=== PATIENT | female | born 1935 | race Caucasian/White ===

== ENCOUNTER 2018-07-14 09:49 | Emergency (ER) | payer OTHER ==
[~2018-07-14] VITALS: Ht 152.4 cm; Wt 67.6 kg
[~2018-07-14 09:49] MED LIST: ASPIRIN EC81 M1 PO; HYDROCERIN CREA1 JAR TOP; LAXATIVE15 MG; MULTIVITAMINS1 EAC7 PO; NORVASC 5 MG TAB5 MG PO; PROZAC 10 MG CA10 MG PO; QUINU10 PD PO; RANEXA500 MG PO
[2018-07-14] MEDS ORDERED: PRAVACHOL20 MG PO (09:55)
[2018-07-14 10:57] VITALS: BP 162/78
== END 2018-07-14 10:59 | disposition home or self-care (01) ==
LOC: M.ERS 09:49
DX: S01.02XA Laceration with foreign body of scalp, initial encounter (principal); Z85.828 Personal history of other malignant neoplasm of skin; Z85.41 Personal history of malignant neoplasm of cervix uteri; Z90.711 Acquired absence of uterus with remaining cervical stump; Z88.5 Allergy status to narcotic agent; Z88.0 Allergy status to penicillin; Z88.2 Allergy status to sulfonamides; W06.XXXA Fall from bed, initial encounter; Y93.89 Activity, other specified; Y92.89 Other specified places as the place of occurrence of the external cause; Y99.8 Other external cause status

== ENCOUNTER 2018-10-29 12:01 | Emergency (ER) | payer OTHER ==
[~2018-10-29] VITALS: Ht 152.4 cm; Wt 67.6 kg
[~2018-10-29 12:01] MED LIST changes: +PRAVACHOL20 MG PO
[2018-10-29 12:26] LABS: ABSOLUTE BASOPHILS 0.1 thou/uL (0.0-0.2); ABSOLUTE EOSINOPHILS 0.2 thou/uL (0.0-0.7); ABSOLUTE LYMPHOCYTES 1.3 thou/uL (0.8-5.3); ABSOLUTE MONOCYTES 0.5 thou/uL (0.0-1.2); ABSOLUTE NEUTROPHILS 5.7 thou/uL (1.6-8.1); BASOPHILS 0.8 %; EOSINOPHILS 2.3 %; HEMATOCRIT 37.5 % (37.0-47.0); HEMOGLOBIN 12.6 gm/dL (12.0-15.0); LYMPHOCYTES 16.4 %; MCH 30.2 pg (26.0-34.0); MCHC 33.7 g/dL (28.0-37.0); MCV 89.5 fL (80.0-100.0); MONOCYTES 6.5 %; NUCLEATED RBCS 0 /100WBC; PLATELET COUNT* 230 thou/uL (150-400); RBC 4.18 mil/uL (4.20-5.00); RDW-CV 13.9 % (10.5-14.5); WBC 7.7 thou/uL (4.0-11.0)
[2018-10-29 12:30] LABS: CALCIUM 9.1 mg/dL (8.5-10.1); CREATININE 0.6 mg/dL (0.6-1.3); POTASSIUM 4.4 mmol/L (3.5-5.1)
[2018-10-29 12:34] LABS: APTT 26.6 Seconds (25.0-31.3); PROTIME 10.2 Seconds (9.20-11.50)
[2018-10-29 12:41] LABS: ALBUMIN 3.8 g/dL (3.4-5.0); TOTAL BILIRUBIN 0.3 mg/dL (<0.1-1.0)
[2018-10-29 13:50] VITALS: BP 164/62
--- NOTE | 2018-10-29 16:27 | EKG ---
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 10/29/18 1627 1236 1236 Kvng Hood MD, [facility] /EPI
== END 2018-10-29 13:50 | disposition home or self-care (01) ==
LOC: M.ERS 12:01
PROVIDERS: Family Medicine
DX: K59.00 Constipation, unspecified (principal); Z88.5 Allergy status to narcotic agent; Z88.0 Allergy status to penicillin; Z88.2 Allergy status to sulfonamides; Z90.711 Acquired absence of uterus with remaining cervical stump; Z85.41 Personal history of malignant neoplasm of cervix uteri; Z85.828 Personal history of other malignant neoplasm of skin

== ENCOUNTER 2019-04-23 13:13 | Inpatient (IN) | payer OTHER ==
[~2019-04-23] VITALS: Ht 152.4 cm; Wt 73.5 kg
[2019-04-23 13:18] VITALS: BP 193/71
[2019-04-23 14:10] LABS: ABSOLUTE BASOPHILS 0.1 thou/uL (0.0-0.2); ABSOLUTE EOSINOPHILS 0.2 thou/uL (0.0-0.7); ABSOLUTE LYMPHOCYTES 1.1 thou/uL (0.8-5.3); ABSOLUTE MONOCYTES 0.7 thou/uL (0.0-1.2); ABSOLUTE NEUTROPHILS 11.1 thou/uL (1.6-8.1); BASOPHILS 0.5 %; EOSINOPHILS 1.6 %; HEMATOCRIT 38.1 % (37.0-47.0); HEMOGLOBIN 12.8 gm/dL (12.0-15.0); LYMPHOCYTES 8.4 %; MCH 30.4 pg (26.0-34.0); MCHC 33.7 g/dL (28.0-37.0); MCV 90.4 fL (80.0-100.0); MPV 7.8 fl. (7.2-11.1); NUCLEATED RBCS 0 /100WBC; PLATELET COUNT* 221 thou/uL (150-400); POLYS 84.5 %; RBC 4.21 mil/uL (4.20-5.00); RDW-CV 13.6 % (10.5-14.5); WBC 13.1 thou/uL (4.0-11.0)
--- NOTE | 2019-04-23 14:20 | EKG ---
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1935 Requested By: Clemente Hudson Order Number: [id number] MD: Michael Garcia Measurements Intervals [place] Rate: 87 P: 47 DE: 185 QRS: 20 QRSD: 87 T: 66 QT: 380 QTc: 457 Interpretive Statements Sinus rhythm Baseline wander in lead(s) I,III,aVL,aVF Compared to ECG 10/29/2018 12:36:45 Left ventricular hypertrophy no longer present Electronically Signed On 04-23-2019 14:19:52 [employer] SUPERVISOR by Michael Garcia [email or web address] <ELECTRONICALLY SIGNED> By: Michael Garcia MD, [facility] 04/23/19 1419 1333 1333 Michael Garcia MD, [facility] /EPI
[2019-04-23 14:22] LABS: CALCIUM 9.5 mg/dL (8.5-10.1); CREATININE 0.6 mg/dL (0.6-1.3); POTASSIUM 3.9 mmol/L (3.5-5.1)
[2019-04-23 14:26] LABS: TOTAL BILIRUBIN 0.4 mg/dL (<0.1-1.0); TOTAL PROTEIN 7.3 g/dL (6.4-8.2)
[2019-04-23 14:42] LABS: APTT 24.2 Seconds (25.0-31.3); PROTIME 10.5 Seconds (9.20-11.50)
[2019-04-23 16:29] LABS: URINE BILIRUBIN NEGATIVE (Negative); URINE BLOOD NEGATIVE (Negative); URINE CLARITY CLEAR; URINE COLOR YELLOW; URINE GLUCOSE-RANDOM NEGATIVE (Negative); URINE KETONES TRACE (Negative); URINE LEUKOCYTES-REFLEX NEGATIVE (Negative); URINE NITRITE-REFLEX NEGATIVE (Negative); URINE PROTEIN NEGATIVE (Negative); URINE UROBILINOGEN 0.2 E.U./dl (0.2-1.0)
[2019-04-23 16:54] VITALS: BP 167/76
[2019-04-23 17:59] VITALS: BP 167/71
[2019-04-23 21:11] VITALS: BP 155/63
[2019-04-24 05:17] LABS: ABSOLUTE EOSINOPHILS 0.1 thou/uL (0.0-0.7); ABSOLUTE LYMPHOCYTES 1.2 thou/uL (0.8-5.3); ABSOLUTE MONOCYTES 0.7 thou/uL (0.0-1.2); ABSOLUTE NEUTROPHILS 5.9 thou/uL (1.6-8.1); BASOPHILS 0.6 %; EOSINOPHILS 1.4 %; HEMATOCRIT 32.5 % (37.0-47.0); HEMOGLOBIN 11.3 gm/dL (12.0-15.0); LYMPHOCYTES 14.6 %; MCH 31.4 pg (26.0-34.0); MCHC 34.9 g/dL (28.0-37.0); MONOCYTES 8.7 %; MPV 8.1 fl. (7.2-11.1); NUCLEATED RBCS 0 /100WBC; PLATELET COUNT* 181 thou/uL (150-400); POLYS 74.7 %; RBC 3.61 mil/uL (4.20-5.00); RDW-CV 13.6 % (10.5-14.5); WBC 7.9 thou/uL (4.0-11.0)
[2019-04-24 05:25] LABS: CALCIUM 8.5 mg/dL (8.5-10.1); CREATININE 0.5 mg/dL (0.6-1.3); MAGNESIUM 2.1 mg/dL (1.8-2.4); POTASSIUM 4.3 mmol/L (3.5-5.1)
[2019-04-24 07:45] VITALS: BP 166/69
[2019-04-24 13:02] VITALS: BP 166/69
[2019-04-24 20:30] VITALS: BP 145/48
[2019-04-25] VITALS: BP 129/49
[2019-04-25 02:07] LABS: GLYCOHEMOGLOBIN (HGB A1C) 6.4 % (4.8-5.6)
[2019-04-25 04:53] LABS: HEMATOCRIT 29.8 % (37.0-47.0); HEMOGLOBIN 10.2 gm/dL (12.0-15.0)
[2019-04-25 08:00] VITALS: BP 150/65
[2019-04-25 13:45] VITALS: BP 141/77
--- NOTE | 2019-04-25 14:26 | OP ---
[address] [address] OPERATIVE REPORT Name: LORENA HUANG Room: [address] [place] [facility]#: [id number] Admission: 04/23/19 Attend Phys: Harley Cho MD Discharge: Date of : 31 Report #: [id number] THIS REPORT FOR: //name// CC: Lester Cho DATE OF SERVICE: 04/24/2019 PREOPERATIVE DIAGNOSIS: Closed intertrochanteric fracture, left hip. POSTOPERATIVE DIAGNOSIS: Closed intertrochanteric fracture, left hip. OPERATION PERFORMED: 1. Open reduction and internal fixation, left hip with cephalomedullary loni (gamma loni). 2. Physician directed fluoroscopy by Dr. Colon SURGEON: Dennis Izquierdo DO. POURER METAL: Get Shukla DO SECOND DESTINATION COORDINATOR: Ron Law ANESTHESIA: General. GROSS PATHOLOGY: There was evidence of a closed intertrochanteric fracture of the left hip. IMPLANTS UTILIZED: [place] gamma loni, 125-degree angle standard with 95 mm lag screw. DESCRIPTION OF PROCEDURE: The patient was brought to the operating room where general anesthetic was administered. Preoperative antibiotics were given. The patient was placed on the operating table. Fracture leg placed in the traction device, the fracture reduced, noted to be in acceptable position. Hibiclens scrub and a ChloraPrep, prep were done to the left hip, leg. The patient was draped in a sterile manner. An incision was then made approximately 3 inches in length and was carried down through the skin and subcuticular material by sharp dissection. By sharp and blunt dissection, the tip of the greater trochanter is identified. The starting awl was utilized to make a hole in this region, it was viewed with the C-arm and noted to be in acceptable position. The guidewire was then inserted into the shaft of the femur again viewed with the C-arm and noted to be in acceptable position in the shaft. The hip was then reamed up to 12.5 mm beginning small and increasing gradually in size and stopped at the area where the loni will end the lesser trochanter area. It was reamed with 15.5 mm diameter. The gamma loni was assembled, placed [place] [address] OPERATIVE REPORT Name: LORENA HUANG Room: [address] [place] [facility].#: [id number] Admission: 04/23/19 Attend Phys: Harley Cho MD Discharge: Date of : 31 Report #: [id number] appropriate depth. The guidewire was removed. Utilizing the guide, incision was then made in the lateral aspect of the hip. It was carried down through the skin and subcuticular material down to the bone. Utilizing the guide, the guidewire was inserted into the femoral neck and head to the appropriate depth. Measurements were taken. The dual reamer was used to ream over the guidewire. The lag screw was then advanced over the guidewire to the appropriate depth for further compression of the fracture utilizing the compression device on the repertoire manager. The fracture was compressed which compressed down very nicely. The locking screw was placed through the proximal portion of the loni tightened and backed off 1 quarter turn. Attention was then turned to the distal portion of the loni utilizing the guide, incision was made, drilled and the transverse screw was placed across the distal portion of the loni in the usual manner. All inserting devices are removed. Final C-arm visualization revealed an acceptable position of the fracture site and implant devices. The C-arm was used intermittently through surgery under my direction for less than 1 hour. The deep tissues were closed with 0 Vicryl suture, subcutaneous with 2-0 Vicryl and zheng on the skin. Estimated blood loss was approximately 100 mL. The areas are anesthetized with Marcaine 0.5% plain, approximately 30 mL. Sterile dressings were applied. The patient was transferred to recovery room in good condition. <ELECTRONICALLY SIGNED> By: Van Mccarthy DO 04/25/19 1426 1547 1918Dennis Izquierdo DO /ace
[2019-04-25 16:00] VITALS: BP 144/78
[2019-04-25 20:00] VITALS: BP 134/41
[2019-04-26] VITALS: BP 119/50
[2019-04-26 04:00] VITALS: BP 146/61
[2019-04-26 07:50] VITALS: BP 133/46
[2019-04-26 08:08] LABS: HEMATOCRIT 26.9 % (37.0-47.0); HEMOGLOBIN 9.4 gm/dL (12.0-15.0)
[2019-04-26 17:46] VITALS: BP 118/64
[2019-04-26 20:00] VITALS: BP 134/41
[2019-04-27 16:52] VITALS: BP 172/63
[2019-04-27 20:20] VITALS: BP 150/55
[2019-04-28 07:35] VITALS: BP 175/67
[2019-04-28 08:28] LABS: HEMATOCRIT 27.7 % (37.0-47.0); HEMOGLOBIN 9.7 gm/dL (12.0-15.0); MCH 31.6 pg (26.0-34.0); MCHC 34.9 g/dL (28.0-37.0); MCV 90.5 fL (80.0-100.0); MPV 7.2 fl. (7.2-11.1); RBC 3.07 mil/uL (4.20-5.00); RDW-CV 13.7 % (10.5-14.5)
[2019-04-28 08:35] LABS: CALCIUM 8.9 mg/dL (8.5-10.1); CREATININE 0.6 mg/dL (0.6-1.3); POTASSIUM 4.2 mmol/L (3.5-5.1)
[2019-04-28] MEDS ORDERED: GLUCOTROL5 MG PO (10:04)
[2019-04-28] MEDS ORDERED: TRAMADOL 50 MG50 MG PO (10:04)
[2019-04-28] MEDS ORDERED: TRADJENTA5 MG PO (10:04)
[2019-04-28] MEDS ORDERED: ASPIRIN325 PO (10:04)
[2019-04-28] MEDS ORDERED: TYLENOL325 MG PO (10:04)
[2019-04-28] MEDS ORDERED: MIRALAX17 GM PO (10:04)
[2019-04-28] MEDS ORDERED: SENNA-TIME S T1 EACH PO (10:04)
[2019-04-28] MEDS ORDERED: HYDROCODON-ACE1 EAC7 PO (10:04)
[2019-04-28 10:23] VITALS: BP 175/67
[2019-04-28 20:00] VITALS: BP 139/62
[2019-04-29 07:34] VITALS: BP 130/55
[2019-04-29 16:00] VITALS: BP 125/61
[2019-04-29 20:00] VITALS: BP 147/59
[2019-04-30 07:40] VITALS: BP 116/62
[2019-04-30 16:00] VITALS: BP 151/62
[2019-05-01 04:05] LABS: HEMATOCRIT 28.3 % (37.0-47.0); HEMOGLOBIN 9.6 gm/dL (12.0-15.0); MCH 31.2 pg (26.0-34.0); MCV 91.7 fL (80.0-100.0); MPV 7.2 fl. (7.2-11.1); RBC 3.08 mil/uL (4.20-5.00); RDW-CV 14.2 % (10.5-14.5)
[2019-05-01 04:17] LABS: ALBUMIN 2.7 g/dL (3.4-5.0); CALCIUM 8.9 mg/dL (8.5-10.1); CREATININE 0.5 mg/dL (0.6-1.3); MAGNESIUM 2.1 mg/dL (1.8-2.4); POTASSIUM 4.4 mmol/L (3.5-5.1); TOTAL BILIRUBIN 0.5 mg/dL (<0.1-1.0); TOTAL PROTEIN 5.9 g/dL (6.4-8.2)
[2019-05-01 07:40] VITALS: BP 147/67
[2019-05-01] MEDS ORDERED: MUCINEX600 MG PO (08:50)
[2019-05-01 16:06] VITALS: BP 172/67
[2019-05-01 20:00] VITALS: BP 154/65
[2019-05-02 07:35] VITALS: BP 148/110
[2019-05-02 10:06] VITALS: BP 148/110
[2019-05-02 20:00] VITALS: BP 159/54
[2019-05-03 07:20] VITALS: BP 138/60
[2019-05-03 16:00] VITALS: BP 147/61
[2019-05-03 21:00] VITALS: BP 129/48
[2019-05-04 07:20] VITALS: BP 157/52
[2019-05-04 20:30] VITALS: BP 134/37
[2019-05-05 07:40] VITALS: BP 155/56
[2019-05-05 14:57] VITALS: BP 148/110
[2019-05-05 15:01] VITALS: BP 148/110
[2019-05-05 15:55] VITALS: BP 147/61
== END 2019-05-05 17:00 | DRG 481 ==
LOC: M.ERS 13:13 → M.ORTHSURG 15:09 → M.TBA-ER 15:09 → M.ORTHSURG 17:00
PROVIDERS: Emergency Medicine; Internal Medicine; Orthopaedic Surgery; ADMIT Family Medicine
PROC: 0QS706Z Reposition Left Upper Femur with Intramedullary Internal Fixation Device, Open Approach (ICD-10-PCS; principal; 2019-04-24)
DX: S72.142A Displaced intertrochanteric fracture of left femur, initial encounter for closed fracture (principal); R65.10 Systemic inflammatory response syndrome (SIRS) of non-infectious origin without acute organ dysfunction; R71.0 Precipitous drop in hematocrit; I10 Essential (primary) hypertension; E11.9 Type 2 diabetes mellitus without complications; W18.39XA Other fall on same level, initial encounter; K59.09 Other constipation; Z88.0 Allergy status to penicillin; Z88.2 Allergy status to sulfonamides; Z88.8 Allergy status to other drugs, medicaments and biological substances; Z79.899 Other long term (current) drug therapy; Z85.828 Personal history of other malignant neoplasm of skin; Z90.710 Acquired absence of both cervix and uterus; Z85.41 Personal history of malignant neoplasm of cervix uteri; Y93.89 Activity, other specified; Y99.8 Other external cause status; Y92.098 Other place in other non-institutional residence as the place of occurrence of the external cause; Z28.21 Immunization not carried out because of patient refusal